=== PATIENT | male | born 1950 | race Caucasian/White ===

== ENCOUNTER 2021-11-05 21:09 | Emergency (ER) | payer MEDICARE ==
[2021-11-05 21:50] LABS: RED BLOOD COUNT 2.21 M/UL (4.20-5.50)
[2021-11-05 22:15] LABS: HEMOGLOBIN 6.8 gm/dl (14.0-17.5); WHITE BLOOD COUNT 30.6 K/UL (4.5-11.0)
== END 2021-11-06 02:40 | disposition short-term general hospital (02) ==
LOC: ER1 21:09
PROVIDERS: Student in an Organized Health Care Education/Training Program
DX: R10.9 Unspecified abdominal pain (principal)
CPT/HCPCS: 36430; 80053; 83690; 85025; 85610; 85730; 86850; 86900; 86901; 86920; 96365; 96375; 99285; J1170; J2270; J2405; J2543; J7050; P9016; Q9967